=== PATIENT | male | born 1955 | race American Indian/Alaskan Native ===

== ENCOUNTER 2021-05-17 02:00 | Outpatient (CLI) | payer OTHER | END 2021-05-17 15:00 | disposition home or self-care (01) | LOC: ASH CLINIC 02:00 | PROVIDERS: ATTEND Emergency Medicine | DX: U07.1 COVID-19 (principal); Z23 Encounter for immunization ==

== ENCOUNTER 2022-02-28 08:33 | Outpatient (CLI) | payer OTHER | END 2022-02-28 08:45 | disposition home or self-care (01) | LOC: LAB 08:33 | PROVIDERS: ATTEND Obstetrics & Gynecology | DX: Z20.828 Contact with and (suspected) exposure to other viral communicable diseases (principal); Z20.818 Contact with and (suspected) exposure to other bacterial communicable diseases ==

== ENCOUNTER 2022-03-01 07:53 | Outpatient (CLI) | payer OTHER | END 2022-03-01 08:04 | disposition home or self-care (01) | LOC: LAB 07:53 | PROVIDERS: ATTEND Obstetrics & Gynecology | DX: Z20.828 Contact with and (suspected) exposure to other viral communicable diseases (principal); Z20.818 Contact with and (suspected) exposure to other bacterial communicable diseases ==

== ENCOUNTER 2022-03-12 08:31 | Outpatient (CLI) | payer OTHER | END 2022-03-12 08:39 | disposition home or self-care (01) | LOC: RAD 08:31 | PROVIDERS: ATTEND Internal Medicine Pulmonary Disease | DX: J45.31 Mild persistent asthma with (acute) exacerbation (principal); G47.33 Obstructive sleep apnea (adult) (pediatric); R05.9 Cough, unspecified; E66.01 Morbid (severe) obesity due to excess calories ==

== ENCOUNTER 2023-03-06 12:57 | Outpatient (CLI) | payer OTHER | END 2023-03-06 13:19 | disposition home or self-care (01) | LOC: LAB 12:57 | PROVIDERS: ATTEND General Practice | DX: E78.5 Hyperlipidemia, unspecified (principal); E55.9 Vitamin D deficiency, unspecified; N39.0 Urinary tract infection, site not specified; R10.9 Unspecified abdominal pain; R42 Dizziness and giddiness; Z12.5 Encounter for screening for malignant neoplasm of prostate; R53.1 Weakness; Z00.00 Encounter for general adult medical examination without abnormal findings ==

== ENCOUNTER 2023-10-12 09:55 | Emergency (ER) | payer OTHER ==
[~2023-10-12] VITALS: Ht 185.4 cm; Wt 102.5 kg
[2023-10-12] MEDS ORDERED: ACID REDUCER20 M1 (10:18)
[2023-10-12] MEDS ORDERED: GLUMETZA1000 MG (10:18)
[2023-10-12] MEDS ORDERED: SYNTHROID75 MCG PO (10:18)
[2023-10-12] MEDS ORDERED: HYDROCHLOROTHIA25 MG PO (10:19)
[2023-10-12] MEDS ORDERED: CRESTOR20 MG PO (10:19)
[2023-10-12] MEDS ORDERED: JARDIANCE25 MG PO (10:20)
[2023-10-12 12:19] LABS: HEMATOCRIT 40.6 % (39.0-48.0); HEMOGLOBIN 13.2 g/dL (13-16.00); MEAN CELL VOLUME 85.7 fL (80.0-100.00); MEAN CORPUSCULAR HEMOGLOBIN 27.9 pg (27.00-32.0); MEAN CORPUSCULAR HGB CONC 32.5 g/dl (32.0-36.0); PLATELET COUNT 251 K/uL (150-450); RED BLOOD COUNT 4.74 M/uL (4.00-6.00); RED CELL DISTRIBUTION WIDTH 15.5 % (11.5-14.5)
[2023-10-12 13:12] LABS: ABG PH 7.438 (7.35-7.45); ABG pCO2 45.8 mmHg (35-45)
[2023-10-12 13:13] LABS: ABG PO2 56.6 mmHg (80-100); BASE EXCESS 5.2 mmol/l; BICARBONATE 30.2 mmol/l (23-25); SaO2 89.1 %; Tco2 31.6 mmol/l; allen test SATISFACTORY; o2 21 %; puncture site RADIAL RIGHT
[2023-10-12] MEDS ORDERED: METHYLPREDNISOLONE SOD SUCC 125 MG VIAL IM STA (16:38)
[2023-10-12 17:27] LABS: ABG PH 7.449 (7.35-7.45); ABG PO2 68.1 mmHg (80-100); ABG pCO2 41.5 mmHg (35-45); BASE EXCESS 3.8 mmol/l; BICARBONATE 28.2 mmol/l (23-25); SaO2 94.4 %; Tco2 29.4 mmol/l; allen test SATISFACTORY; o2 21 %; puncture site RADIAL RIGHT
== END 2023-10-12 17:14 | disposition home or self-care (01) ==
LOC: ER 09:55
PROVIDERS: Emergency Medicine
DX: J22 Unspecified acute lower respiratory infection (principal); E11.9 Type 2 diabetes mellitus without complications; Z79.84 Long term (current) use of oral hypoglycemic drugs; E03.9 Hypothyroidism, unspecified; I10 Essential (primary) hypertension; Z20.822 Contact with and (suspected) exposure to COVID-19
CPT/HCPCS: 36415; 71045; 71250; 82803; 96372; 99284; J2930

== ENCOUNTER 2024-07-20 06:29 | Outpatient (CLI) | payer OTHER ==
[~2024-07-20 06:29] MED LIST: ACID REDUCER20 M1; CRESTOR20 MG PO; GLUMETZA1000 MG; HYDROCHLOROTHIA25 MG PO; JARDIANCE25 MG PO; SYNTHROID75 MCG PO
[2024-07-20 07:43] LABS: HEMATOCRIT 44.8 % (39.0-48.0); HEMOGLOBIN 15.2 g/dL (13-16.00); MEAN CELL VOLUME 89.7 fL (80.0-100.00); MEAN CORPUSCULAR HEMOGLOBIN 30.4 pg (27.00-32.0); MEAN CORPUSCULAR HGB CONC 33.9 g/dl (32.0-36.0); PLATELET COUNT 243 K/uL (150-450); RED BLOOD COUNT 4.99 M/uL (4.00-6.00); RED CELL DISTRIBUTION WIDTH 16.1 % (11.5-14.5)
[2024-07-20 07:45] LABS: PH,URINE 5.5 (5.0-8.0); URINE APPEARANCE Clear; URINE BILIRRUBIN Negative (NEGATIVE); URINE BLOOD Negative; URINE COLOR Yellow; URINE KETONE Negative (NEGATIVE); URINE LEUKOCYTE Negative; URINE NITRATE Negative; URINE PROTEIN Negative (NEGATIVE); URINE UROBILINOGEN 0.2 E.U./dl
[2024-07-20 07:46] LABS: URINE EPITHELIAL CELLS 1.7 uL (0.0-38.8); URINE WBC 6.6 uL (0.0-23.2)
[2024-07-20 08:06] LABS: URINE BACTERIA 1.2 uL (0.0-1933); URINE CAST 0.29 uL (0.0-1.40); URINE GLUCOSE 500 MG/DL (NEGATIVE); URINE RBC 0.7 uL (0.0-20.8)
[2024-07-20 08:58] LABS: CALCIUM 9.5 mg/dL (8.5-10.1); CREATININE SERUM 1.23 mg/dL (0.70-1.30); FERRITIN 34.3 NG/ML (26-388); GFR 58.17; POTASSIUM 4.59 mEq/L (3.5-5.1)
[2024-07-20 21:19] LABS: URIC ACID 6.2 mg/dL (3.5-8.5)
== END 2024-07-20 06:44 | disposition home or self-care (01) ==
LOC: LAB 06:29
DX: D64.9 Anemia, unspecified (principal); E11.8 Type 2 diabetes mellitus with unspecified complications; E70.9 Disorder of aromatic amino-acid metabolism, unspecified